=== PATIENT | male | born 1960 | race Two or more races ===

== ENCOUNTER → 2021-01-21 | Outpatient (CLI) | payer OTHER | END | disposition home or self-care (01) | LOC: PPH VACUNA → EDBD | DX: Z23 Encounter for immunization (principal) ==

== ENCOUNTER → 2021-02-11 08:00 | Outpatient (CLI) | payer OTHER | END | disposition home or self-care (01) | LOC: PPH VACUNA 02-07 08:00 | DX: Z23 Encounter for immunization (principal) ==